=== PATIENT | male | born 1980 | race Caucasian/White ===

== ENCOUNTER 2017-12-04 07:09 | Day surgery (SDC) | payer BC ==
[2017-12-01 10:20] VITALS: BMI 21.6
[2017-12-04 07:59] VITALS: RESP 16; TEMP 98.1
[2017-12-04] MEDS ORDERED: LIDOCAINE 1% 20 ML VIAL (10MG/ML) FOR IV START INTRADERMA ONE (08:07)
[2017-12-04] MEDS: LACTATED RINGERS 1,000 ML IV SCH ×2 (08:07→09:13)
[2017-12-04] MEDS ORDERED: PROPOFOL 10 MG/ML 20 ML VIAL IV ONE (09:13)
[2017-12-04] MEDS ORDERED: LIDOCAINE 1% INJ 10MG/ML (20 ML MDV) ONE (09:13)
--- NOTE | 2017-12-04 09:27 | P.PCN ---
Date of Procedure: 12/04/17 Procedure(s) Performed: BRIEF HISTORY: Patient is a 37-year-old, pleasant,, scheduled for an upper endoscopy as a part of a left-sided severe epigastric pain for the last 2 weeks ' duration. He has intermittent episodes of epigastric pain for the last 2 years and has been on omeprazole 20 g daily and was doing well. However 2 weeks ago he had severe symptoms lasted for 2 or 3 days. Prilosec was increased to 20 mg twice a lengthy and his symptoms improved. His and scheduled for an upper endoscopy to evaluate further. PROCEDURE PERFORMED: Esophagogastroduodenoscopy with biopsy. PREOPERATIVE DIAGNOSIS: Epigastric pain. IV sedation per anesthesia. PROCEDURE: After informed consent was obtained, the patient was brought into the endoscopy unit. IV sedation was administered by Anesthesia under continuous monitoring. Initially the Olympus GIF-140 video endoscope was inserted into the mouth. Esophagus intubated without any difficulty. It was gradually advanced into the stomach and duodenum and carefully examined. The bulb and the second part of the duodenum appeared normal. The scope at this time was withdrawn to the stomach, adequately insufflated with air, and upon careful examination, mucosa of the antrum, had mild gastritis and biopsies were done from this area. The body, cardia and the fundus appeared normal. The scope was then withdrawn into the esophagus. The GE junction was located at 39 cm from the incisors. Small sliding Hiatal hernia noted. The esophagus appeared normal. Biopsies were also done from the distal esophagus. There were no erosions or ulcerations seen and the patient tolerated the procedure well. IMPRESSION: 1. Mild antral gastritis. 2. Small hiatal hernia but no evidence of esophagitis. RECOMMENDATIONS: The findings of this examination were discussed with the patient as well as his family. He was advised to continue with omeprazole 20 mg twice daily and follow antireflux measures.
[2017-12-04 09:44] VITALS: BP 117/68; PULSE 45
== END 2017-12-04 10:20 | disposition home or self-care (01) ==
LOC: ORWHC2ENDO 07:09
PROVIDERS: ATTEND Internal Medicine Gastroenterology
DX: K44.9 Diaphragmatic hernia without obstruction or gangrene (principal); Z79.82 Long term (current) use of aspirin; Z79.899 Other long term (current) drug therapy; F17.200 Nicotine dependence, unspecified, uncomplicated; K21.9 Gastro-esophageal reflux disease without esophagitis
CPT/HCPCS: 88305; 43239; J2001; J2704

== ENCOUNTER → 2021-05-03 | Outpatient (CLI) | payer BC ==
--- NOTE | 2021-05-03 11:34 | CT ---
EXAMINATION TYPE: CT sinus wo con DATE OF EXAM: 05/03/2021 COMPARISON: None HISTORY: Chronic sinusitis CT DLP: 654.4 mGycm. Automated Exposure Control for Dose Reduction was Utilized. TECHNIQUE: CT scan of the sinuses is performed without contrast, axial images are obtained, coronal r eformatted images are also reviewed. FINDINGS: There is severe mucosal thickening involving the ethmoid air cells greater on the right. Ma xillary sinuses appear to be of normal appearance. Mild mucosal thickening involving the inferior mar gin of the frontal sinus on the right. Sphenoid sinus is clear. The ostiomeatal complex is patent bilaterally on the coronal images. Moderate-sized right chito bull ulysses. Visualized portion of mastoid air cells show no abnormal opacification. The globes are intact bilate rally. IMPRESSION: 1. Moderate adenoidal and mild frontal chronic appearing sinusitis.
== END | disposition home or self-care (01) ==
LOC: RADCTMAIN 11:12
PROVIDERS: ATTEND Otolaryngology
DX: J32.8 Other chronic sinusitis (principal)
CPT/HCPCS: 70486

== ENCOUNTER 2021-06-12 09:47 | Day surgery (SDC) | payer BC ==
[2021-06-10 14:56] VITALS: BMI 19.2
[~2021-06-12 09:47] MED LIST: DEXAMETHASONE SOD PHOSPHATE 4 MG/ML 1 ML VIAL IV ONE; DEXAMETHASONE SOD PHOSPHATE 4 MG/ML 1 ML VIAL IV PRN; FAMOTIDINE 20 MG/2 ML VIAL IV PRN; HYDROmorphone 0.5 MG/0.5 ML SYRINGE IVP PRN; LACTATED RINGERS 1,000 ML IV SCH; LIDOCAINE 1% (10MG/ML) FOR IV START INTRADERMA PRN; MIDAZOLAM 2 MG/2 ML VIAL IV PRN; ONDANSETRON 4 MG/2 ML VIAL IVP ONE; ONDANSETRON 4 MG/2 ML VIAL IVP PRN; metroNIDAZOLE-NS PMX 500 MG in SALINE 1 100ML.BAG IVPB PRN
[2021-06-12] MEDS: OXYMETAZOLINE 0.05% NASL SPRAY 1 SPRAY BOTTLE EA NOSTRIL PRN ×5 (10:05→10:25)
[2021-06-12] MEDS ORDERED: LIDOCAINE 1% INJ 10MG/ML (20 ML MDV) ONE (10:46)
[2021-06-12] MEDS ORDERED: ePHEDrine 50 MG/ML 1 ML AMP ONE (10:46)
[2021-06-12] MEDS ORDERED: SUCCINYLCHOLINE CHLORIDE 100 MG/5 ML SYR IV ONE (10:46)
[2021-06-12] MEDS ORDERED: PROPOFOL 10 MG/ML 20 ML VIAL IV ONE (10:46)
[2021-06-12] MEDS ORDERED: fentaNYL (PF) 50 MCG/ML 2 ML AMP ONE (10:46)
[2021-06-12] MEDS ORDERED: LIDOCAINE 1%-EPI 1:100,000 20 ML VIAL SUBMUCOSAL ONE ×2 (11:05)
[2021-06-12] MEDS ORDERED: BACITRACIN ZINC 500 UNIT/GM OINT 28.4 GM TUBE TOPICAL ONE ×2 (11:09→12:01)
[2021-06-12] MEDS ORDERED: LACTATED RINGERS 1,000 ML IV ONE (11:59)
--- NOTE | 2021-06-12 12:07 | P.OP ---
Date of Procedure: 06/12/21 Preoperative Diagnosis: Deviated nasal septum Inferior turbinate hypertrophy Chronic sinusitis Postoperative Diagnosis: Same Procedure(s) Performed: Septoplasty Outfracture and submucous resection of the inferior turbinates Bilateral endoscopic sinus surgery including bilateral maxillary antrostomy with removal of tissue from the maxillary sinuses, bilateral anterior and posterior ethmoidectomy, bilateral frontal sinusotomy with removal of tissue from the frontal sinuses, right chito bullectomy Anesthesia: HALIA Surgeon: Gene Blair Estimated Blood Loss (ml): 10 Pathology: other (Nasal septal bone and cartilage and sinus contents) Condition: stable Disposition: PACU Indications for Procedure: This is a 41-year-old white female who has difficulties with chronic nasal airway obstruction congestion recurrent and chronic sinusitis with computed tomography scan showing ethmoid frontal and maxillary sinuses Operative Findings: Septum deviated left with inferior turbinate hypertrophy bilaterally. The maxillary ostia were obstructed small polyps in the maxillary sinuses, diffuse thickening in the ethmoid-which was severe in the right ethmoid sinuses and moderate on the left and frontal sinuses Description of Procedure: The patient was brought into the operative suite and placed in a supine position. The patient underwent induction of general anesthesia with oral endotracheal intubation without difficulty. The patient was prepped and draped in the usual aseptic fashion with the orbits in the operating field for monitoring to the case and the computed tomography scan was on the computer screen for review throughout the case. 1% lidocaine with 1 :100,000 epinephrine was infused submucosally into both sides of the nasal septum as well as the lateral nasal wall and anterior tips of the middle turbinates. While this was taking vasoconstrictive effect the inferior turbinates were infractured with [employer] elevator and partial submucous resection of the inferior turbinates was performed with a portion of the submucosal soft tissue and the inferior turbinate bone removed with Coblation device. The inferior turbinates were then outfractured with the [employer] elevator. A left hemitransfixion incision was then made with the mucoperichondrial and mucoperiosteal flap on the left elevated. The bony cartilaginous junction was disarticulated and the mucoperiosteal flap on the right was elevated. Bony nasal septal deformities were removed with Cherry forceps and an inferior cartilaginous strip was removed leaving a full 1.5 cm caudal strut. Checking intranasally this corrected the nasoseptal deformities and the hemitransfixion incision was closed with a running 4-0 chromic suture. Full 0 endoscopic examination is performed bilaterally. Beginning on the left, the middle turbinate was medialized. The maxillary ostium was located with a ballpoint probe and an infundibulotomy was performed followed by uncinectomy. The maxillary antrostomy was enlarged at the expense of the anterior and posterior fontanelle taking care anteriorly not to injure the lacrimal bone. The maxillary sinus was evaluated with 30 and 70 endoscope .[Abnormal appearing tissue was removed from the maxillary sinus]. Anterior and posterior ethmoidectomy were then performed from anterior to posterior to the level of the skull base. The roof of the anterior ethmoid air cells were then cleaned from posterior to anterior using up-biting Blakesley forceps. Frontal sinusotomy of the frontal sinus was then performed using up-biting Blakesley forceps and giraffe forceps with exploration of the sinus with 30 and 70 endoscope. The frontal sinus was then explored with 30 endoscope.[Abnormal tissue was removed from the frontal sinus]. Attention was then turned to the right where the procedures were followed as they had been on the left. [Combination of xerogel and firm Nasopore nasal dressing was placed in the middle meatus bilaterally under direct visualization]. Bilateral Meyer airway splints coated with bacitracin ointment were placed and sutured transseptally with a 4-0 nylon suture. The patient was suctioned in oral gastric fashion and was allowed to emerge from general anesthesia having tolerated procedure well and was extubated in the operating suite and transferred to the postoperative recovery area in satisfactory condition.
[2021-06-12 12:17] VITALS: TEMP 97.4
[2021-06-12 12:22] VITALS: RESP 16
[2021-06-12 13:14] VITALS: BP 130/76; PULSE 88
[2021-06-12] MEDS ORDERED: HYDROcodone/APAP 5-325MG 1 EACH TAB ONE (13:20)
[2021-06-12] MEDS ORDERED: HYDROcodone/APAP 5-325MG 1 EACH TAB PO ONE (13:22)
== END 2021-06-12 13:54 | disposition home or self-care (01) ==
LOC: OR 09:47
PROVIDERS: ATTEND Otolaryngology
DX: J34.2 Deviated nasal septum (principal); J34.3 Hypertrophy of nasal turbinates; J32.9 Chronic sinusitis, unspecified; G43.909 Migraine, unspecified, not intractable, without status migrainosus; F17.210 Nicotine dependence, cigarettes, uncomplicated; Z87.442 Personal history of urinary calculi; F41.9 Anxiety disorder, unspecified; Z79.82 Long term (current) use of aspirin; Z98.890 Other specified postprocedural states; Z79.899 Other long term (current) drug therapy; Z91.09 Other allergy status, other than to drugs and biological substances; Z91.030 Bee allergy status
CPT/HCPCS: 88305; 88300; 30520; 30140; 31267; 31253; J2250; J1100; J0690; J2405; J2001; J3010; J0330; J2704; J1170